=== PATIENT | male | born 1995 | race Two or more races ===

== ENCOUNTER 2021-07-06 01:56 | Emergency (ER) | payer MEDICAID ==
[~2021-07-06] VITALS: Ht 170.2 cm; Wt 99.8 kg
[2021-07-06 02:15] VITALS: BP 134/75
--- NOTE | 2021-07-06 02:20 | NUR ---
PT BIBS FOR C/O L ANKLE PAIN AND "KEEPS ON POPPING AND GET LOCKED" S/P SPRAINED ANKLE >10DAYS AGO, ALSO W/ L SIDED NECK PAIN. PT ALERT AND ORIENTED X4. PT IS AMBULATORY WITH NON LABORED SPONTANEOUS BREATHING.
--- NOTE | 2021-07-06 02:25 | NUR ---
Tracie rehman in EDM - 07/06/21 at 0334 by LAUREL Patient discharged to home in stable condition. Written and verbal after care instructions given. Patient verbalizes understanding of instruction. PT. VERBALIZED UNDERSTANDING OF AFTERCARE INSTRUCTIONS. GIVEN COPY OF XRAY RESULTS.
--- NOTE | 2021-07-06 02:38 | NUR ---
[employer] AT BEDSIDE.
--- NOTE | 2021-07-06 03:25 | NUR ---
Patient discharged to home in stable condition. Written and verbal after care instructions given. Patient verbalizes understanding of instruction. PT. VERBALIZED UNDERSTANDING OF AFTERCARE INSTRUCTIONS. GIVEN COPY OF XRAY RESULTS.
== END 2021-07-06 03:32 | disposition home or self-care (01) ==
LOC: ER 02:13
DX: S93.492A Sprain of other ligament of left ankle, initial encounter (principal); S13.4XXA Sprain of ligaments of cervical spine, initial encounter; F84.0 Autistic disorder; X50.1XXA Overexertion from prolonged static or awkward postures, initial encounter; Y93.89 Activity, other specified; Y92.89 Other specified places as the place of occurrence of the external cause; Y99.8 Other external cause status
CPT/HCPCS: 70360-TC; 73610-TC

== ENCOUNTER 2021-11-10 21:58 | Emergency (ER) | payer BC, OTHER ==
[~2021-11-10] VITALS: Ht 170.2 cm; Wt 99.8 kg
--- NOTE | 2021-11-10 22:19 | NUR ---
PATIENT WAS BIB SELF WITH C/O 5-6/10 LEFT FLANK PAIN THAT BEGAN AT 2030. PATIENT FURTHER STATES HE HAS HISTORY OF KIDNEY STONES. PT IS AAO X4, IN NO SIGN OF ACUTE DISTRESS, BREATHING EVEN AND UNLABORED. PT WAS SEEN AND EXAMINED BY DR LYONS. PT WAS ATTACHED TO MONITOR AND PULSE OX. WILL CONT TO MONITOR AND CARRY OUT MD ORDERS.
--- NOTE | 2021-11-10 22:20 | NUR ---
URINE COLLECTED AND SENT TO LAB
[2021-11-10 22:54] LABS: BASOPHILS % (AUTO) 0.2 % (0.0-2.0); EOSINOPHILS % (AUTO) 0.5 % (0.0-6.0); HEMATOCRIT 43 % (39-51); LYMPHOCYTES # (AUTO) 1.9 K/uL (0.8-4.8); LYMPHOCYTES % (AUTO) 15.8 % (20.0-44.0); MEAN CORPUSCULAR HGB CONC 33 g/dl (31.0-36.0); MEAN CORPUSCULAR VOLUME 91 fL (80-96); MONOCYTES # (AUTO) 0.7 K/uL (0.1-1.30); MONOCYTES % (AUTO) 5.3 % (2.0-12.0); NEUTROPHILS # (AUTO) 9.6 K/uL (1.8-8.9); NEUTROPHILS % (AUTO) 78.2 % (43.0-81.0); PLATELET COUNT (AUTO) 276 K/uL (150-450); RED BLOOD CELL COUNT(AUTO) 4.69 MIL/uL (4.5-6.0); WHITE BLOOD COUNT (AUTO) 12.3 K/uL (4.3-11.0)
[2021-11-10 23:16] LABS: ALBUMIN 3.6 g/dL (3.4-5.0); BILIRUBIN,DIRECT 0.1 mg/dL (0.0-0.2); BILIRUBIN,TOTAL 0.1 mg/dL (0.2-1.0); CALCIUM, SERUM 8.5 mg/dL (8.5-10.1); CREATININE 0.7 mg/dL (0.6-1.3); POTASSIUM 4.5 mmol/L (3.5-5.1); TOTAL PROTEIN, SERUM 7.2 g/dL (6.4-8.2)
[2021-11-10 23:27] LABS: BILIRUBIN,URINE NEGATIVE (NEGATIVE); COLOR,URINE YELLOW (YELLOW); LEUKOCYTE ESTERASE ,URINE NEGATIVE (NEGATIVE); NITRITE, URINE NEGATIVE (NEGATIVE); PROTEIN,URINE NEGATIVE (NEGATIVE); UGLUCOSE NEGATIVE (NEGATIVE); UROBILINOGEN,URINE 0.2 EU/dL (0.2)
--- NOTE | 2021-11-11 01:10 | NUR ---
Patient discharged to home in stable condition. Written and verbal after care instructions given. Patient verbalizes understanding of instruction. Patient ambulatory with a steady gait
[2021-11-11 01:12] VITALS: BP 122/71
== END 2021-11-11 01:00 | disposition home or self-care (01) ==
LOC: ER 22:01
DX: N43.3 Hydrocele, unspecified (principal); R10.31 Right lower quadrant pain; R10.32 Left lower quadrant pain; F84.0 Autistic disorder
CPT/HCPCS: 36415; 76870-TC; 80048-TC; 80076-TC; 83690-TC; 85025-TC